=== PATIENT | female | born 1940 | race Caucasian/White ===

== ENCOUNTER 2016-11-06 14:59 | Outpatient (CLI) | payer MEDICARE, OTHER ==
[2015-09-03 17:19] VITALS: BP 148/88
== END 2016-11-06 15:00 ==
LOC: LAB 14:59
PROVIDERS: ATTEND Internal Medicine Cardiovascular Disease
DX: Z51.81 Encounter for therapeutic drug level monitoring (principal); Z79.01 Long term (current) use of anticoagulants; I48.2 Chronic atrial fibrillation
CPT/HCPCS: 36415; 85610

== ENCOUNTER 2017-01-09 11:56 | Outpatient (CLI) | payer MEDICARE, OTHER ==
[2015-09-03 17:19] VITALS: BP 148/88
== END 2017-01-09 11:57 ==
LOC: LAB 11:56
PROVIDERS: ATTEND Internal Medicine Cardiovascular Disease
DX: Z51.81 Encounter for therapeutic drug level monitoring (principal); Z79.01 Long term (current) use of anticoagulants; I48.2 Chronic atrial fibrillation
CPT/HCPCS: 36415; 85610

== ENCOUNTER 2017-03-09 10:31 | Outpatient (CLI) | payer MEDICARE, OTHER ==
[2015-09-03 17:19] VITALS: BP 148/88
== END 2017-03-09 10:32 ==
LOC: LAB 10:31
PROVIDERS: ATTEND Internal Medicine Cardiovascular Disease
DX: I48.2 Chronic atrial fibrillation (principal)
CPT/HCPCS: 36415; 85610

== ENCOUNTER 2017-04-09 11:34 | Outpatient (CLI) | payer MEDICARE, OTHER ==
[2015-09-03 17:19] VITALS: BP 148/88
== END 2017-04-09 11:35 ==
LOC: LAB 11:34
PROVIDERS: ATTEND Internal Medicine Cardiovascular Disease
DX: I48.2 Chronic atrial fibrillation (principal)
CPT/HCPCS: 36415; 85610

== ENCOUNTER 2017-06-08 11:04 | Outpatient (CLI) | payer MEDICARE, OTHER ==
[2015-09-03 17:19] VITALS: BP 148/88
== END 2017-06-08 13:10 ==
LOC: LAB 11:04
PROVIDERS: ATTEND Internal Medicine Cardiovascular Disease
DX: I48.2 Chronic atrial fibrillation (principal)
CPT/HCPCS: 36415; 85610

== ENCOUNTER 2017-07-06 11:02 | Outpatient (CLI) | payer MEDICARE, OTHER ==
[2015-09-03 17:19] VITALS: BP 148/88
== END 2017-07-06 11:03 ==
LOC: LAB 11:02
PROVIDERS: ATTEND Internal Medicine Cardiovascular Disease
DX: I48.2 Chronic atrial fibrillation (principal)
CPT/HCPCS: 36415; 85610

== ENCOUNTER 2017-07-20 11:52 | Outpatient (CLI) | payer MEDICARE, OTHER ==
[2015-09-03 17:19] VITALS: BP 148/88
== END 2017-07-20 11:53 ==
LOC: LAB 11:52
PROVIDERS: ATTEND Internal Medicine Cardiovascular Disease
DX: I48.2 Chronic atrial fibrillation (principal)
CPT/HCPCS: 36415; 85610

== ENCOUNTER 2017-08-24 11:43 | Outpatient (CLI) | payer MEDICARE, OTHER ==
[2015-09-03 17:19] VITALS: BP 148/88
== END 2017-08-24 11:44 ==
LOC: LAB 11:43
PROVIDERS: ATTEND Internal Medicine Cardiovascular Disease
DX: Z79.01 Long term (current) use of anticoagulants (principal)
CPT/HCPCS: 36415; 85610

== ENCOUNTER 2017-09-22 11:26 | Outpatient (CLI) | payer MEDICARE, OTHER ==
[2015-09-03 17:19] VITALS: BP 148/88
== END 2017-09-22 11:27 ==
LOC: LAB 11:26
PROVIDERS: ATTEND Internal Medicine Cardiovascular Disease
DX: Z79.01 Long term (current) use of anticoagulants (principal)
CPT/HCPCS: 36415; 85610

== ENCOUNTER 2017-11-30 13:24 | Outpatient (CLI) | payer MEDICARE, OTHER ==
[2015-09-03 17:19] VITALS: BP 148/88
== END 2017-11-30 13:25 ==
LOC: LAB 13:24
PROVIDERS: ATTEND Internal Medicine Cardiovascular Disease
DX: Z79.01 Long term (current) use of anticoagulants (principal)
CPT/HCPCS: 36415; 85610

== ENCOUNTER 2017-12-16 11:59 | Outpatient (CLI) | payer MEDICARE, OTHER ==
[2015-09-03 17:19] VITALS: BP 148/88
== END 2017-12-16 12:00 ==
LOC: LAB 11:59
PROVIDERS: ATTEND Internal Medicine Cardiovascular Disease
DX: Z79.01 Long term (current) use of anticoagulants (principal)
CPT/HCPCS: 36415; 85610

== ENCOUNTER 2017-12-30 11:36 | Outpatient (CLI) | payer MEDICARE, OTHER ==
[2015-09-03 17:19] VITALS: BP 148/88
== END 2017-12-30 12:00 ==
LOC: LAB 11:36
PROVIDERS: ATTEND Internal Medicine Cardiovascular Disease
DX: Z79.01 Long term (current) use of anticoagulants (principal)
CPT/HCPCS: 36415; 85610

== ENCOUNTER 2018-01-06 10:53 | Outpatient (CLI) | payer MEDICARE, OTHER ==
[2015-09-03 17:19] VITALS: BP 148/88
== END 2018-01-06 11:00 ==
LOC: LABRHC 10:53
PROVIDERS: ATTEND Physician Assistant
DX: R30.0 Dysuria (principal)
CPT/HCPCS: 87086; 87186

== ENCOUNTER 2018-01-13 11:56 | Outpatient (CLI) | payer MEDICARE, OTHER ==
[2015-09-03 17:19] VITALS: BP 148/88
== END 2018-01-13 11:58 ==
LOC: LAB 11:56
PROVIDERS: ATTEND Internal Medicine Cardiovascular Disease
DX: Z79.01 Long term (current) use of anticoagulants (principal)
CPT/HCPCS: 36415; 85610

== ENCOUNTER 2018-02-10 11:48 | Outpatient (CLI) | payer MEDICARE, OTHER ==
[2015-09-03 17:19] VITALS: BP 148/88
== END 2018-02-10 11:50 ==
LOC: LAB 11:48
PROVIDERS: ATTEND Internal Medicine Cardiovascular Disease
DX: Z79.01 Long term (current) use of anticoagulants (principal)
CPT/HCPCS: 36415; 85610

== ENCOUNTER 2018-03-02 13:34 | Outpatient (CLI) | payer MEDICARE, OTHER ==
[2015-09-03 17:19] VITALS: BP 148/88
== END 2018-03-02 13:36 ==
LOC: LAB 13:34
PROVIDERS: ATTEND Internal Medicine Cardiovascular Disease
DX: Z79.01 Long term (current) use of anticoagulants (principal)
CPT/HCPCS: 36415; 85610

== ENCOUNTER 2018-04-12 16:18 | Inpatient (IN) | payer MEDICARE, OTHER ==
[2018-04-12 18:33] VITALS: BMI 33.1
[2018-04-12] MEDS ORDERED: ASPIRIN EC 81 MG TABLET.DR ONE (19:56)
[2018-04-12] MEDS ORDERED: ACETAMINOPHEN 325 MG TABLET ONE (21:26)
[2018-04-12] MEDS: ACETAMINOPHEN ORAL SOLUTION 325 MG/10.15 ML CUP PO PRN (21:30)
[2018-04-12] MEDS: traMADol HCL 50 MG TABLET PO PRN (21:30)
[2018-04-12] MEDS: SIMVASTATIN 20 MG TABLET PO SCH ×2 (21:30→21:43)
[2018-04-12] MEDS: ZOLPIDEM TARTRATE 5 MG TABLET PO PRN (21:30)
[2018-04-12] MEDS: LORazepam 0.5 MG TABLET PO PRN (21:30)
[2018-04-12] MEDS: LEVOTHYROXINE SODIUM 25 MCG TABLET PO SCH (21:43)
[2018-04-12] MEDS: OMEPRAZOLE 20 MG CAPSULE.DR PO SCH (21:43)
[2018-04-13] MEDS: LEVOTHYROXINE SODIUM 25 MCG TABLET PO SCH (06:20)
[2018-04-13] MEDS: OMEPRAZOLE 20 MG CAPSULE.DR PO SCH (06:20)
[2018-04-13] MEDS: ASPIRIN 81 MG CHEW TAB PO SCH (08:58)
[2018-04-13] MEDS: DILTIAZEM HCL 180 MG CAP.ER.24H PO SCH (08:58)
[2018-04-13] MEDS: CALCIUM/VIT D 500MG/200IU TABLET PO SCH (08:58)
[2018-04-13] MEDS: AMIODARONE HCL 200 MG TABLET PO SCH (08:58)
[2018-04-13] MEDS: FUROSEMIDE 40 MG TABLET PO SCH (08:58)
[2018-04-13] MEDS: CHOLECALCIFEROL (VIT D3) 1,000 UNIT TABLET PO SCH (08:58)
[2018-04-13] MEDS: METOPROLOL SUCCINATE 50 MG TAB.ER.24H PO SCH (08:58)
[2018-04-13] MEDS: HYDROXYUREA 500 MG CAPSULE PO SCH (10:00)
[2018-04-13 13:15] LABS: MEAN CORPUSCULAR HEMOGLOBIN 21.3 pg (28.0-34.0)
[2018-04-13 13:16] LABS: MEAN CORPUSCULAR VOLUME 80.7 fl (80.0-100.0)
[2018-04-13 13:48] LABS: ANISOCYTOSIS 1+ (NEGATIVE); EOSINOPHILS % 1 % (0-7); HYPOCHROMASIA 1+ (NEGATIVE); MONOCYTES % 3 % (0-11); SEGMENTED NEUTROPHILS % 88 % (39-79)
[2018-04-13] MEDS: WARFARIN SODIUM 1 MG TABLET PO SCH (17:36)
[2018-04-13] MEDS ORDERED: ACETAMINOPHEN 325 MG TABLET ONE ×2 (19:53→20:03)
[2018-04-13] MEDS: traMADol HCL 50 MG TABLET PO PRN (20:00)
[2018-04-13] MEDS: SIMVASTATIN 20 MG TABLET PO SCH (20:00)
[2018-04-13] MEDS: ACETAMINOPHEN ORAL SOLUTION 325 MG/10.15 ML CUP PO PRN (20:00)
[2018-04-13] MEDS: ZOLPIDEM TARTRATE 5 MG TABLET PO PRN (21:39)
[2018-04-13] MEDS: LORazepam 0.5 MG TABLET PO PRN (21:39)
[2018-04-14] MEDS ORDERED: ACETAMINOPHEN 325 MG TABLET ONE (02:00)
[2018-04-14] MEDS: ACETAMINOPHEN ORAL SOLUTION 325 MG/10.15 ML CUP PO PRN (02:05)
[2018-04-14] MEDS: traMADol HCL 50 MG TABLET PO PRN ×3 (02:05→22:33)
[2018-04-14] MEDS: OMEPRAZOLE 20 MG CAPSULE.DR PO SCH (06:20)
[2018-04-14] MEDS: LEVOTHYROXINE SODIUM 25 MCG TABLET PO SCH (06:20)
[2018-04-14] MEDS: CHOLECALCIFEROL (VIT D3) 1,000 UNIT TABLET PO SCH (08:35)
[2018-04-14] MEDS: METOPROLOL SUCCINATE 50 MG TAB.ER.24H PO SCH (08:35)
[2018-04-14] MEDS: DILTIAZEM HCL 180 MG CAP.ER.24H PO SCH (08:35)
[2018-04-14] MEDS: ASPIRIN 81 MG CHEW TAB PO SCH (08:35)
[2018-04-14] MEDS: AMIODARONE HCL 200 MG TABLET PO SCH (08:35)
[2018-04-14] MEDS: FUROSEMIDE 40 MG TABLET PO SCH (08:35)
[2018-04-14] MEDS: CALCIUM/VIT D 500MG/200IU TABLET PO SCH (08:35)
[2018-04-14] MEDS: HYDROXYUREA 500 MG CAPSULE PO SCH (08:35)
[2018-04-14] MEDS: WARFARIN SODIUM 1 MG TABLET PO SCH (18:04)
[2018-04-14] MEDS: SIMVASTATIN 20 MG TABLET PO SCH (20:23)
[2018-04-14] MEDS: ZOLPIDEM TARTRATE 5 MG TABLET PO PRN (21:33)
[2018-04-15] MEDS: LORazepam 0.5 MG TABLET PO PRN (01:00)
[2018-04-15] MEDS: LEVOTHYROXINE SODIUM 25 MCG TABLET PO SCH (06:34)
[2018-04-15] MEDS: OMEPRAZOLE 20 MG CAPSULE.DR PO SCH (06:34)
[2018-04-15 06:59] LABS: MEAN CORPUSCULAR VOLUME 78.4 fl (80.0-100.0)
--- NOTE | 2018-04-15 08:03 | Inpatient Progress Note ---
Subjective - Required Recertification Statement I anticipate X number of days because-include discharge plan: 14 - Review of Systems Subjective: Patient reports she is not sleeping at night. Feels tired. Pain is doing ok. General: Fatigue. Denies: Night Sweats Pulmonary: Denies: Cough Cardiovascular: Denies: Chest Pain Genitourinary: Denies: Dysuria Objective - Exam Vitals and I&O: Vital Signs Temp 98 F 04/14/18 21:00 Pulse 106 H 04/14/18 21:00 Resp 16 04/14/18 21:00 BP 141/65 04/14/18 21:00 Pulse Ox 95 04/14/18 21:00 Intake & Output 04/14/18 04/14/18 04/15/18 11:59 23:59 11:59 Intake Total 200 480 Balance 200 480 Intake: Oral 200 480 Other: Voiding Method Toilet Toilet # Voids 2 1 3 # Bowel Movements 0 0 0 General: Alert, Oriented to Person, Oriented to Place, Oriented to Time, Cooperative, No acute distress Lungs: Clear to auscultation, Normal air movement, Speaks full Sentences Cardiovascular: Irregularly Irregular - Results Results: Laboratory Results WBC 18.50 K/ul (4.00-12.00) H 04/15/18 06:50 RBC 4.16 M/ul (3.90-5.20) 04/15/18 06:50 Hgb 8.3 g/dL (12.0-16.0) L 04/15/18 06:50 Hct 32.6 % (34.5-46.5) L 04/15/18 06:50 MCV 78.4 fl (80.0-100.0) L 04/15/18 06:50 MCH 20.0 pg (28.0-34.0) L 04/15/18 06:50 MCHC 25.5 g/dL (30.0-36.0) L 04/15/18 06:50 RDW 18.3 % (11.3-14.3) H 04/15/18 06:50 Plt Count 740 K/mm3 (130-400) H 04/15/18 06:50 Seg Neutrophils % 88 % (39-79) H 04/13/18 11:15 Band Neutrophils % 1 % (0-12) 04/13/18 11:15 Lymphocytes % 7 % (16-50) L 04/13/18 11:15 Monocytes % 3 % (0-11) 04/13/18 11:15 Eosinophils % 1 % (0-7) 04/13/18 11:15 Plt Morphology Comment Normal (NORMAL) 04/13/18 11:15 Hypochromasia 1+ (NEGATIVE) H 04/13/18 11:15 Poikilocytosis 1+ (NEGATIVE) H 04/13/18 11:15 Anisocytosis 1+ (NEGATIVE) H 04/13/18 11:15 RBC Morph Comment Abnormal (NORMAL) H 04/13/18 11:15 PT 15.7 Seconds (9.4-11.6) H 04/15/18 06:50 INR 1.49 (0.9-1.2) H 04/15/18 06:50 Sodium 130 mmol/L (136-145) L 04/13/18 11:15 Potassium 3.7 mmol/L (3.5-5.1) 04/13/18 11:15 Chloride 96 mmol/L (98-107) L 04/13/18 11:15 Carbon Dioxide 29 mmol/L (22-30) 04/13/18 11:15 BUN 54 mg/dL (7-17) H 04/13/18 11:15 Creatinine 1.50 mg/dL (0.52-1.04) H 04/13/18 11:15 Estimated Creat Clear 51 04/13/18 11:15 Est GFR ( Amer) 43 (60-) L 04/13/18 11:15 Est GFR (Non-Af Amer) 36 (60-) L 04/13/18 11:15 Glucose 128 mg/dL (74-106) H 04/13/18 11:15 Calcium 8.5 mg/dL (8.4-10.2) 04/13/18 11:15 Total Bilirubin 0.6 mg/dL (0.2-1.3) 04/13/18 11:15 AST 39 U/L (15-46) 04/13/18 11:15 ALT 38 U/L (13-69) 04/13/18 11:15 Alkaline Phosphatase 70 U/L (38-126) 04/13/18 11:15 Total Protein 5.9 g/dL (6.3-8.2) L 04/13/18 11:15 Albumin 3.2 g/dL (3.5-5.0) L 04/13/18 11:15 Assessment/Plan - Assessment/Plan (1) Afib Status: Acute Current Visit: Yes Plan: INR low. Increase coumadin. Recheck 2 days. (2) Polycythemia Status: Acute Current Visit: Yes Plan: Will discuss with Dr. Mcnair. At [facility], her WBC were 19,500. Hgb was 7.4. She reports she had been on hydroxyurea qod. [facility] sent her on qd. (3) Insomnia Status: Acute Current Visit: Yes Qualifiers: Insomnia type: primary Qualified Code(s): F51.01 - Primary insomnia Plan: Add dose of lorazepam at night per patient request. (4) Insomnia Status: Acute Current Visit: Yes
[2018-04-15] MEDS: CHOLECALCIFEROL (VIT D3) 1,000 UNIT TABLET PO SCH (09:50)
[2018-04-15] MEDS: DILTIAZEM HCL 180 MG CAP.ER.24H PO SCH (09:50)
[2018-04-15] MEDS: AMIODARONE HCL 200 MG TABLET PO SCH (09:50)
[2018-04-15] MEDS: HYDROXYUREA 500 MG CAPSULE PO SCH (09:50)
[2018-04-15] MEDS: FUROSEMIDE 40 MG TABLET PO SCH (09:50)
[2018-04-15] MEDS: METOPROLOL SUCCINATE 50 MG TAB.ER.24H PO SCH (09:50)
[2018-04-15] MEDS: CALCIUM/VIT D 500MG/200IU TABLET PO SCH (09:50)
[2018-04-15] MEDS: ASPIRIN 81 MG CHEW TAB PO SCH (09:50)
[2018-04-15] MEDS ORDERED: ACETAMINOPHEN 325 MG TABLET ONE (11:59)
[2018-04-15] MEDS: WARFARIN SODIUM 1 MG TABLET PO SCH (17:45)
[2018-04-15] MEDS: traMADol HCL 50 MG TABLET PO PRN (21:31)
[2018-04-15] MEDS: ZOLPIDEM TARTRATE 5 MG TABLET PO PRN (21:31)
[2018-04-15] MEDS: LORazepam 1 MG TABLET PO SCH (21:31)
[2018-04-15] MEDS: SIMVASTATIN 20 MG TABLET PO SCH (21:31)
[2018-04-16] MEDS ORDERED: ACETAMINOPHEN 325 MG TABLET ONE ×3 (01:27→15:46)
[2018-04-16] MEDS: ACETAMINOPHEN ORAL SOLUTION 325 MG/10.15 ML CUP PO PRN (01:30)
[2018-04-16] MEDS: LEVOTHYROXINE SODIUM 25 MCG TABLET PO SCH (05:35)
[2018-04-16] MEDS: OMEPRAZOLE 20 MG CAPSULE.DR PO SCH (05:36)
[2018-04-16] MEDS: METOPROLOL SUCCINATE 50 MG TAB.ER.24H PO SCH (09:05)
[2018-04-16] MEDS: CALCIUM/VIT D 500MG/200IU TABLET PO SCH (09:05)
[2018-04-16] MEDS: DILTIAZEM HCL 180 MG CAP.ER.24H PO SCH (09:05)
[2018-04-16] MEDS: ASPIRIN 81 MG CHEW TAB PO SCH (09:05)
[2018-04-16] MEDS: HYDROXYUREA 500 MG CAPSULE PO SCH (09:05)
[2018-04-16] MEDS: AMIODARONE HCL 200 MG TABLET PO SCH (09:05)
[2018-04-16] MEDS: CHOLECALCIFEROL (VIT D3) 1,000 UNIT TABLET PO SCH (09:05)
[2018-04-16] MEDS: FUROSEMIDE 40 MG TABLET PO SCH (09:37)
[2018-04-16] MEDS: WARFARIN SODIUM 1 MG TABLET PO SCH (17:53)
[2018-04-16] MEDS: traMADol HCL 50 MG TABLET PO PRN (20:55)
[2018-04-16] MEDS: LORazepam 1 MG TABLET PO SCH (20:55)
[2018-04-16] MEDS: SIMVASTATIN 20 MG TABLET PO SCH (20:55)
[2018-04-16] MEDS: ZOLPIDEM TARTRATE 5 MG TABLET PO PRN (20:55)
[2018-04-17] MEDS: ACETAMINOPHEN ORAL SOLUTION 325 MG/10.15 ML CUP PO PRN ×2 (01:49→20:33)
[2018-04-17] MEDS: LORazepam 0.5 MG TABLET PO PRN (01:50)
[2018-04-17] MEDS: OMEPRAZOLE 20 MG CAPSULE.DR PO SCH (06:14)
[2018-04-17] MEDS: LEVOTHYROXINE SODIUM 25 MCG TABLET PO SCH (06:14)
--- NOTE | 2018-04-17 08:32 | History and Physical Report ---
CHIEF COMPLAINT: Recent mitral valve repair and MAZE procedure. HISTORY OF PRESENT ILLNESS: This 77-year-old female patient of Dr. Jarvis's presented with a known history of nonrheumatic mitral valve disease over the last several years. She has been followed for this by Dr. Dupree and it was felt that it had gotten to the point where her symptoms were such that her dyspnea on exertion was markedly limiting her ability to participate in the things she cared about. As a result, she was taken the operating room for a mitral valve repair and also because of her atrial fibrillation, a MAZE procedure. She intraoperatively briefly returned to a sinus rhythm but returned to atrial fibrillation soon after the procedure was finished. She is now on amiodarone. Other than that, her hospital course was fairly remarkable. She comes to us for ongoing therapy. PAST MEDICAL HISTORY: 1. History for nonrheumatic mitral valve insufficiency. 2. Hypercholesterolemia. 3. Hypertension. 4. Hypothyroidism. 5. Chronic atrial fibrillation. 6. Dyspnea on exertion. 7. History of gastroesophageal reflux disease. 8. History of a TIA. 9. Polycythemia for which she is on hydroxyurea. PAST SURGICAL HISTORY: 1. Hysterectomy. 2. Ankle surgery because of a trimalleolar fracture of the left ankle. CURRENT MEDICATIONS: 1. Tylenol ER 650 mg every 8 hours. 2. Allopurinol 200 mg p.o. at bedtime. 3. Amiodarone 200 mg p.o. daily. 4. Aspirin 81 mg daily. 5. Calcium 500 mg orally by mouth daily. 6. Cholecalciferol 2 tablets p.o. daily. 7. Diltiazem XR 180 mg daily. 8. Lasix 40 mg daily. 9. Hydroxyurea 500 mg p.o. daily. 10. Levothyroxine 25 mcg daily. 11. Lorazepam 0.5 mg p.o. daily. 12. Lovastatin 10 mg p.o. daily. 13. Metoprolol XL 50 mg every 24 hours p.r.n. 14. Warfarin 3 mg daily. 15. Tramadol 50 mg p.o. every 6 hours. 16. Omeprazole 20 mg daily. 17. Zolpidem 10 mg at bedtime. ALLERGIES: She is allergic to: 1. Meloxicam. 2. Pradaxa, which caused some bleeding. SOCIAL HISTORY: She quit smoking over a year ago. She is a . She does not exercise regularly. She is retired. She lives alone in [place], [place], but has very close follow up from her son and other relatives, as well as grandchildren here in town. FAMILY HISTORY: Noncontributory. REVIEW OF SYSTEMS: Notable for a little bit of chest pain and dyspnea on exertion. She says it has not markedly improved since surgery, although she states it may be slightly so. She has no fever, chills, nausea or vomiting. No abdominal pain. No constipation or diarrhea. Extremities are warm and well perfused. She does not have any ankle pain. PHYSICAL EXAMINATION: Vital Signs: T: 97.2, P: 79, R: 18, BP: 109/64, pulse oximetry is 96% on room air. General: This is a very pleasant, alert, and oriented 77-year-old female who looks younger than her stated age. HEENT: Mucous membranes to be moist. Neck: No JVD is noted. No carotid bruits. No thyroid masses. Lungs: Clear. Heart: Irregularly irregular rhythm. Chest: Her sternotomy scar is actually healing extremely well. No keloid formation. Chest tube site is also unremarkable. Abdomen: Soft. No guarding. No rebound. Scar from previous hysterectomy is noted. Pelvic Exam: Deferred. Extremities: Warm and well perfused. She has scars up and down the outside of her left ankle from her open reduction and internal fixation of her left ankle. DIAGNOSTIC STUDIES: Laboratory will be drawn in the morning. ASSESSMENT: 1. Status post recent coronary artery bypass grafting. 2. Chronic atrial fibrillation. 3. Status post MAZE procedure. 4. Chronic hypothyroidism. 5. Hypertension. 6. Atherosclerotic coronary vascular disease. 7. Hyperlipidemia. PLAN: 1. Medications as ordered. 2. Occupational therapy and physical therapy are ordered. They will be working with her tomorrow. 3. We will check an INR and we will follow that. 4. Continue her warfarin 3 mg a day for DVT prophylaxis and also for her atrial fibrillation. 5. Antiembolic stockings are ordered. 6. We will check a CMP and a CBC in the morning. CALIN
[2018-04-17] MEDS: FUROSEMIDE 40 MG TABLET PO SCH (09:15)
[2018-04-17] MEDS: CALCIUM/VIT D 500MG/200IU TABLET PO SCH (09:15)
[2018-04-17] MEDS: CHOLECALCIFEROL (VIT D3) 1,000 UNIT TABLET PO SCH (09:15)
[2018-04-17] MEDS: ASPIRIN 81 MG CHEW TAB PO SCH (09:15)
[2018-04-17] MEDS: AMIODARONE HCL 200 MG TABLET PO SCH (09:15)
[2018-04-17] MEDS: DILTIAZEM HCL 180 MG CAP.ER.24H PO SCH (09:15)
[2018-04-17] MEDS: METOPROLOL SUCCINATE 50 MG TAB.ER.24H PO SCH (09:15)
[2018-04-17] MEDS: HYDROXYUREA 500 MG CAPSULE PO SCH (09:15)
[2018-04-17 09:34] LABS: BASOPHILS % 0.7 (0.0-1.5)
[2018-04-17 09:36] LABS: MEAN CORPUSCULAR HEMOGLOBIN 20.3 pg (28.0-34.0)
[2018-04-17] MEDS: WARFARIN SODIUM 1 MG TABLET PO SCH (17:59)
[2018-04-17] MEDS ORDERED: ACETAMINOPHEN 325 MG TABLET ONE (20:00)
[2018-04-17] MEDS: SIMVASTATIN 20 MG TABLET PO SCH (20:33)
[2018-04-17] MEDS: ZOLPIDEM TARTRATE 5 MG TABLET PO PRN (21:29)
[2018-04-17] MEDS: traMADol HCL 50 MG TABLET PO PRN (21:29)
[2018-04-17] MEDS: LORazepam 1 MG TABLET PO SCH (21:29)
[2018-04-18] MEDS: LORazepam 0.5 MG TABLET PO PRN ×2 (01:28→23:10)
[2018-04-18] MEDS: traMADol HCL 50 MG TABLET PO PRN ×2 (04:31→23:10)
[2018-04-18] MEDS: OMEPRAZOLE 20 MG CAPSULE.DR PO SCH (06:15)
[2018-04-18] MEDS: LEVOTHYROXINE SODIUM 25 MCG TABLET PO SCH (06:15)
[2018-04-18] MEDS: HYDROXYUREA 500 MG CAPSULE PO SCH (09:04)
[2018-04-18] MEDS: METOPROLOL SUCCINATE 50 MG TAB.ER.24H PO SCH (09:04)
[2018-04-18] MEDS: AMIODARONE HCL 200 MG TABLET PO SCH (09:04)
[2018-04-18] MEDS: ASPIRIN 81 MG CHEW TAB PO SCH (09:04)
[2018-04-18] MEDS: CALCIUM/VIT D 500MG/200IU TABLET PO SCH (09:04)
[2018-04-18] MEDS: CHOLECALCIFEROL (VIT D3) 1,000 UNIT TABLET PO SCH (09:04)
[2018-04-18] MEDS: FUROSEMIDE 40 MG TABLET PO SCH (09:04)
[2018-04-18] MEDS: DILTIAZEM HCL 180 MG CAP.ER.24H PO SCH (09:04)
[2018-04-18] MEDS ORDERED: ACETAMINOPHEN 325 MG TABLET ONE (17:34)
[2018-04-18] MEDS: ACETAMINOPHEN ORAL SOLUTION 325 MG/10.15 ML CUP PO PRN (17:41)
[2018-04-18] MEDS: WARFARIN SODIUM 1 MG TABLET PO SCH (17:43)
[2018-04-18] MEDS: LORazepam 1 MG TABLET PO SCH (21:30)
[2018-04-18] MEDS: SIMVASTATIN 20 MG TABLET PO SCH (21:30)
[2018-04-18] MEDS: ZOLPIDEM TARTRATE 5 MG TABLET PO PRN (21:30)
[2018-04-19] MEDS ORDERED: ACETAMINOPHEN 325 MG TABLET ONE (03:16)
[2018-04-19] MEDS: OMEPRAZOLE 20 MG CAPSULE.DR PO SCH (06:30)
[2018-04-19] MEDS: LEVOTHYROXINE SODIUM 25 MCG TABLET PO SCH (06:30)
[2018-04-19 07:12] LABS: BASOPHILS % 0.4 (0.0-1.5); EOSINOPHILS % 2.8 % (0.0-6.8); MEAN CORPUSCULAR HEMOGLOBIN 20.1 pg (28.0-34.0); MEAN CORPUSCULAR VOLUME 78.7 fl (80.0-100.0); NEUTROPHILS # 14.1 # k/uL (1.4-7.7)
[2018-04-19 07:26] LABS: eGFR (African) > 60; eGFR (Non-African) > 60
[2018-04-19] MEDS: METOPROLOL SUCCINATE 50 MG TAB.ER.24H PO SCH (09:38)
[2018-04-19] MEDS: CHOLECALCIFEROL (VIT D3) 1,000 UNIT TABLET PO SCH (09:38)
[2018-04-19] MEDS: AMIODARONE HCL 200 MG TABLET PO SCH (09:38)
[2018-04-19] MEDS: CALCIUM/VIT D 500MG/200IU TABLET PO SCH (09:38)
[2018-04-19] MEDS: DILTIAZEM HCL 180 MG CAP.ER.24H PO SCH (09:38)
[2018-04-19] MEDS: ASPIRIN 81 MG CHEW TAB PO SCH (09:39)
[2018-04-19] MEDS: HYDROXYUREA 500 MG CAPSULE PO SCH (09:39)
[2018-04-19] MEDS: FUROSEMIDE 40 MG TABLET PO SCH (09:39)
[2018-04-19] MEDS: ACETAMINOPHEN ORAL SOLUTION 325 MG/10.15 ML CUP PO PRN (14:34)
[2018-04-19] MEDS: WARFARIN SODIUM 1 MG TABLET PO SCH (17:54)
[2018-04-19] MEDS: SIMVASTATIN 20 MG TABLET PO SCH (21:06)
[2018-04-19] MEDS: LORazepam 1 MG TABLET PO SCH (21:06)
[2018-04-19] MEDS: ZOLPIDEM TARTRATE 5 MG TABLET PO PRN (21:12)
[2018-04-20] MEDS: LORazepam 0.5 MG TABLET PO PRN (02:12)
[2018-04-20] MEDS: ACETAMINOPHEN ORAL SOLUTION 325 MG/10.15 ML CUP PO PRN (03:30)
[2018-04-20] MEDS: traMADol HCL 50 MG TABLET PO PRN ×2 (05:45→20:53)
[2018-04-20] MEDS: LEVOTHYROXINE SODIUM 25 MCG TABLET PO SCH (05:46)
[2018-04-20] MEDS: OMEPRAZOLE 20 MG CAPSULE.DR PO SCH (05:46)
[2018-04-20] MEDS: METOPROLOL SUCCINATE 50 MG TAB.ER.24H PO SCH (08:30)
[2018-04-20] MEDS: CHOLECALCIFEROL (VIT D3) 1,000 UNIT TABLET PO SCH (08:30)
[2018-04-20] MEDS: HYDROXYUREA 500 MG CAPSULE PO SCH (08:30)
[2018-04-20] MEDS: DILTIAZEM HCL 180 MG CAP.ER.24H PO SCH (08:30)
[2018-04-20] MEDS: AMIODARONE HCL 200 MG TABLET PO SCH (08:31)
[2018-04-20] MEDS: CALCIUM/VIT D 500MG/200IU TABLET PO SCH (08:31)
[2018-04-20] MEDS: FUROSEMIDE 40 MG TABLET PO SCH (08:31)
[2018-04-20] MEDS: ASPIRIN 81 MG CHEW TAB PO SCH (08:31)
[2018-04-20] MEDS ORDERED: ACETAMINOPHEN 325 MG TABLET ONE (15:27)
[2018-04-20] MEDS: WARFARIN SODIUM 1 MG TABLET PO SCH (17:56)
[2018-04-20] MEDS: ZOLPIDEM TARTRATE 5 MG TABLET PO PRN (20:53)
[2018-04-20] MEDS: SIMVASTATIN 20 MG TABLET PO SCH (20:54)
[2018-04-20] MEDS: LORazepam 1 MG TABLET PO SCH (20:54)
[2018-04-21] MEDS: LORazepam 0.5 MG TABLET PO PRN (01:01)
[2018-04-21] MEDS: traMADol HCL 50 MG TABLET PO PRN (03:14)
[2018-04-21] MEDS: OMEPRAZOLE 20 MG CAPSULE.DR PO SCH (06:08)
[2018-04-21] MEDS: LEVOTHYROXINE SODIUM 25 MCG TABLET PO SCH (06:09)
--- NOTE | 2018-04-21 07:54 | Inpatient Progress Note ---
Subjective - Required Recertification Statement I anticipate X number of days because-include discharge plan: 7 - Review of Systems Subjective: Patient still not sleeping despite ambien and lorazepam. She reports mattress hurts her back at night. Stools are infrequent and hard. Objective - Exam Vitals and I&O: Vital Signs Temp 98.4 F 04/20/18 21:00 Pulse 81 04/20/18 21:00 Resp 18 04/20/18 21:00 BP 128/75 04/20/18 21:00 Pulse Ox 99 04/20/18 21:00 Intake & Output 04/20/18 04/20/18 04/21/18 11:59 23:59 11:59 Intake Total 780 1000 200 Output Total 1 Balance 780 999 200 Intake: Oral 780 1000 200 Output: Stool 1 Other: Voiding Method Toilet Toilet # Voids 1 2 # Bowel Movements 1 General: Alert, Oriented to Person, Oriented to Place, Oriented to Time, Cooperative, No acute distress Lungs: Clear to auscultation, Normal air movement, Speaks full Sentences Cardiovascular: Irregularly Irregular Extremities: No: No edema (1+ edema) Psych/Mental Status: Mental status NL, Mood NL - Results Results: Laboratory Results WBC 15.50 K/ul (4.00-12.00) H 04/19/18 06:45 RBC 4.00 M/ul (3.90-5.20) 04/19/18 06:45 Hgb 8.1 g/dL (12.0-16.0) L 04/19/18 06:45 Hct 31.5 % (34.5-46.5) L 04/19/18 06:45 MCV 78.7 fl (80.0-100.0) L 04/19/18 06:45 MCH 20.1 pg (28.0-34.0) L 04/19/18 06:45 MCHC 25.6 g/dL (30.0-36.0) L 04/19/18 06:45 RDW 18.5 % (11.3-14.3) H 04/19/18 06:45 Plt Count 930 K/mm3 (130-400) H 04/19/18 06:45 Neut % (Auto) 90.5 % (39.0-79.0) H 04/19/18 06:45 Lymph % (Auto) 4.6 % (16.0-50.0) L 04/19/18 06:45 [place] % (Auto) 1.0 % (0.0-11.0) 04/19/18 06:45 Eos % (Auto) 2.8 % (0.0-6.8) 04/19/18 06:45 Baso % (Auto) 0.4 (0.0-1.5) 04/19/18 06:45 Neut # (Auto) 14.1 # k/uL (1.4-7.7) H 04/19/18 06:45 Lymph # (Auto) 0.7 # k/uL (0.6-4.0) 04/19/18 06:45 [place] # (Auto) 0.2 # k/uL (0.0-0.9) 04/19/18 06:45 Eos # (Auto) 0.4 # k/uL (0.0-0.6) 04/19/18 06:45 Baso # (Auto) 0.1 # k/uL (0.0-0.5) 04/19/18 06:45 Seg Neutrophils % 88 % (39-79) H 04/13/18 11:15 Band Neutrophils % 1 % (0-12) 04/13/18 11:15 Lymphocytes % 7 % (16-50) L 04/13/18 11:15 Reactive Lymphs % 0.7 % (0.0-5.0) 04/19/18 06:45 Monocytes % 3 % (0-11) 04/13/18 11:15 Eosinophils % 1 % (0-7) 04/13/18 11:15 Reactive Lymphs # 0.1 # k/uL (0.0-0.8) 04/19/18 06:45 Plt Morphology Comment Normal (NORMAL) 04/13/18 11:15 Hypochromasia 1+ (NEGATIVE) H 04/13/18 11:15 Poikilocytosis 1+ (NEGATIVE) H 04/13/18 11:15 Anisocytosis 1+ (NEGATIVE) H 04/13/18 11:15 RBC Morph Comment Abnormal (NORMAL) 04/13/18 11:15 PT 51.0 Seconds (9.4-11.6) H 04/21/18 06:45 INR 4.78 (0.9-1.2) H 04/21/18 06:45 Sodium 137 mmol/L (136-145) 04/19/18 06:45 Potassium 4.2 mmol/L (3.5-5.1) 04/19/18 06:45 Chloride 100 mmol/L (98-107) 04/19/18 06:45 Carbon Dioxide 31 mmol/L (22-30) H 04/19/18 06:45 BUN 25 mg/dL (7-17) H 04/19/18 06:45 Creatinine 1.00 mg/dL (0.52-1.04) 04/19/18 06:45 Estimated Creat Clear 76 04/19/18 06:45 Est GFR ( Amer) > 60 (60-) 04/19/18 06:45 Est GFR (Non-Af Amer) > 60 (60-) 04/19/18 06:45 Glucose 102 mg/dL (74-106) 04/19/18 06:45 Calcium 8.7 mg/dL (8.4-10.2) 04/19/18 06:45 Total Bilirubin 0.6 mg/dL (0.2-1.3) 04/13/18 11:15 AST 39 U/L (15-46) 04/13/18 11:15 ALT 38 U/L (13-69) 04/13/18 11:15 Alkaline Phosphatase 70 U/L (38-126) 04/13/18 11:15 Total Protein 5.9 g/dL (6.3-8.2) L 04/13/18 11:15 Albumin 3.2 g/dL (3.5-5.0) L 04/13/18 11:15 Assessment/Plan - Assessment/Plan (1) Afib Status: Acute Current Visit: Yes Plan: INR overshot. Hold coumadin. REcheck INR in the am. Home dose was 2.5 mg. Monitored by [facility]. (2) Polycythemia Status: Acute Current Visit: Yes Plan: Labs stable. Dr. Mcnair aware. Will need labs - CBC in 2 weeks with results sent to him. (3) Insomnia Status: Acute Current Visit: Yes Qualifiers: Insomnia type: primary Qualified Code(s): F51.01 - Primary insomnia Plan: Will d/c ambien and lorazepam at night. Trial of temazepam 15 mg. May need to increase to 30 mg. Add K pad for back discomfort at night. (4) Insomnia Status: Acute Current Visit: Yes (5) Constipation Status: Acute Current Visit: Yes Qualifiers: Constipation type: slow transit constipation Qualified Code(s): K59.01 - Slow transit constipation Plan: Dulcolax today. Add colace.
[2018-04-21] MEDS ORDERED: BISACODYL 5 MG TABLET.DR PO ONE (08:17)
[2018-04-21] MEDS: ASPIRIN 81 MG CHEW TAB PO SCH (09:09)
[2018-04-21] MEDS: HYDROXYUREA 500 MG CAPSULE PO SCH (09:09)
[2018-04-21] MEDS: DILTIAZEM HCL 180 MG CAP.ER.24H PO SCH (09:09)
[2018-04-21] MEDS: FUROSEMIDE 40 MG TABLET PO SCH (09:10)
[2018-04-21] MEDS: AMIODARONE HCL 200 MG TABLET PO SCH (09:10)
[2018-04-21] MEDS: CALCIUM/VIT D 500MG/200IU TABLET PO SCH (09:10)
[2018-04-21] MEDS: CHOLECALCIFEROL (VIT D3) 1,000 UNIT TABLET PO SCH (09:10)
[2018-04-21] MEDS: METOPROLOL SUCCINATE 50 MG TAB.ER.24H PO SCH (09:10)
[2018-04-21] MEDS: DOCUSATE SODIUM 100 MG CAPSULE PO SCH (09:12)
[2018-04-21] MEDS: ACETAMINOPHEN ORAL SOLUTION 325 MG/10.15 ML CUP PO PRN (19:38)
[2018-04-21] MEDS: SIMVASTATIN 20 MG TABLET PO SCH (21:00)
[2018-04-21] MEDS ORDERED: TEMAZEPAM 15 MG CAP PO SCH (21:00)
[2018-04-22] MEDS ORDERED: TEMAZEPAM 15 MG CAP PO ONE (01:30)
[2018-04-22] MEDS: traMADol HCL 50 MG TABLET PO PRN ×2 (02:51→08:03)
[2018-04-22] MEDS: LEVOTHYROXINE SODIUM 25 MCG TABLET PO SCH (06:08)
[2018-04-22] MEDS: OMEPRAZOLE 20 MG CAPSULE.DR PO SCH (06:08)
[2018-04-22] MEDS: METOPROLOL SUCCINATE 50 MG TAB.ER.24H PO SCH (08:03)
[2018-04-22] MEDS: DOCUSATE SODIUM 100 MG CAPSULE PO SCH (08:03)
[2018-04-22] MEDS: HYDROXYUREA 500 MG CAPSULE PO SCH (08:03)
[2018-04-22] MEDS: DILTIAZEM HCL 180 MG CAP.ER.24H PO SCH (08:03)
[2018-04-22] MEDS: AMIODARONE HCL 200 MG TABLET PO SCH (08:03)
[2018-04-22] MEDS: CHOLECALCIFEROL (VIT D3) 1,000 UNIT TABLET PO SCH (08:03)
[2018-04-22] MEDS: ASPIRIN 81 MG CHEW TAB PO SCH (08:03)
[2018-04-22] MEDS: FUROSEMIDE 40 MG TABLET PO SCH (08:03)
[2018-04-22] MEDS: CALCIUM/VIT D 500MG/200IU TABLET PO SCH (08:04)
[2018-04-22] MEDS ORDERED: ZOLPIDEM TARTRATE 5 MG TABLET PO PRN (12:24)
--- NOTE | 2018-04-22 13:10 | Discharge Summary ---
Discharge Summary - Discharge Sumary History of Present Illness: Patient underwent mitral valve repair and cryomaze at [facility]. Due to weakness, she was admitted to SNF for further conditioning. Condition at Discharge: Stable Home Medications: Ambulatory Orders Medication Instructions Recorded Acetaminophen [Tylenol] 650 mg PO Q6 PRN 04/22/18 Acetaminophen [Tylenol] 650 mg PO Q6 PRN cup 04/22/18 Amiodarone HCl [Pacerone] 200 mg PO QD #30 tablet 04/22/18 Aspirin [Children's Aspirin] 81 mg PO DAILY 04/22/18 Bisacodyl [Dulcolax] 10 mg PO QD 04/22/18 Calcium Carbonate/Vitamin D3 1 tab PO D 04/22/18 [Calcium 500 + Vit D 200 Tablet] Cholecalciferol [Vitamin D-3] 2,000 unit PO DAILY 04/22/18 Docusate Sodium [Colace] 200 mg PO D 04/22/18 Furosemide [Lasix] 40 mg PO DAILY 04/22/18 Hydroxyurea [Hydrea] 500 mg PO DAILY 04/22/18 LORazepam [Ativan] 1 tab PO Q6 PRN 04/22/18 Simvastatin 20 mg PO HS 04/22/18 Consultations this Visit: None Procedures this Visit: None Allergies/Adverse Reactions: Allergies Allergy/AdvReac Type Severity Reaction Status Date / Time No Known Drug Allergies Allergy Verified 09/03/15 15:49 Patient Problems: Current Active Problems Problem Status Onset Afib Acute Constipation Acute Insomnia Acute Insomnia Acute Polycythemia Acute Discharge Summary: Patient was admitted for PT/OT after undergoing mitral valve repair and Cryomaze by DR. Mckeon at [facility]. She did well with therapy but slept very poorly. She eventually requested discharge due to her poor sleep. Therapy and social organization professor helped set up Home Health and were comfortable with discharge. Her routine ambien didn't help. Lorazepam added was ho help. Temazepam did not help. Her INR remained low so coumadin was increased. INR was then supratherapuetic. It is on hold at discharge - she will resume her home dose in several days. INR will be drawn in several days by home health and faxed to [facility]. Hospital Course: Discharge Dx: WEakness. AFIB. s/p MV repair. HTN. polycythemia vera with leukocytosis, anemia, thrombocytosis. Disposition: Home Health.
[2018-04-22 15:41] VITALS: BP 127/62
== END 2018-04-22 15:37 | disposition home health service (06) | DRG 951 ==
LOC: SOUTH 16:18
PROVIDERS: ADMIT Family Medicine; ATTEND Family Medicine
DX: Z95.1 Presence of aortocoronary bypass graft (principal); I48.91 Unspecified atrial fibrillation; E03.9 Hypothyroidism, unspecified; I10 Essential (primary) hypertension; I25.10 Atherosclerotic heart disease of native coronary artery without angina pectoris; E78.5 Hyperlipidemia, unspecified
CPT/HCPCS: 36415; 80048; 80053; 85025; 85027; 85610

== ENCOUNTER 2018-06-30 15:24 | Outpatient (CLI) | payer MEDICARE, OTHER ==
[2018-06-30 16:34] LABS: MEAN CORPUSCULAR HEMOGLOBIN 26.5 pg (28.0-34.0); MEAN CORPUSCULAR VOLUME 92.7 fl (80.0-100.0)
[2018-06-30 17:16] LABS: eGFR (Non-African) 42
--- NOTE | 2018-06-30 18:46 | Diagnostic Imaging Report ---
MINNA CONLEY [facility] [address] [facility] [address] [address] Report Submission Date: Jun 30, 2018 4:52:30 PM CDT Patient Study Name: GALLITO POOLE Date: Jun 30, 2018 4:17:34 PM CDT Modality Type: DX Gender: F Description: PELVIS : 40 Institution: [facility] Physician: MINNA CONLEY AP pelvis History: Low back after fall AP view of the pelvis demonstrates no evidence for acute fracture or dislocation. No significant degenerative findings are noted. SI joints are patent. Impression: No osseous abnormality. Electronically signed on Jun 30, 2018 4:52:30 PM CDT by: Gia LAYTON
--- NOTE | 2018-06-30 18:47 | Diagnostic Imaging Report ---
MINNA CONLEY [facility] [address] [facility] [address] [address] Report Submission Date: Jun 30, 2018 4:49:21 PM CDT Patient Study Name: GALLITO POOLE Date: Jun 30, 2018 4:15:53 PM CDT Modality Type: DX Gender: F Description: SPINE : 40 Institution: [facility] Physician: MINNA CONLEY Lumbar spine History: Low back pain after a fall AP and lateral projections of the lumbar spine were obtained which demonstrate mild superior endplate compression deformity at L1, potentially acute. There is an estimated 10% loss of vertebral body height. There is moderate disc space narrowing at all levels except L1/2. There is extensive, multilevel facet arthropathy without appreciable spondylolisthesis. Aortoiliac atherosclerosis is present. Impression: Mild superior endplate compression deformity at L1 with an estimated 10% loss of vertebral body height, possibly acute. Extensive multilevel facet arthropathy and multilevel disc space narrowing. Electronically signed on Jun 30, 2018 4:49:21 PM CDT by: Gia LAYTON
== END 2018-06-30 15:26 ==
LOC: LAB 15:24
PROVIDERS: ATTEND Family Medicine
DX: R20.0 Anesthesia of skin (principal); Z79.01 Long term (current) use of anticoagulants; I48.91 Unspecified atrial fibrillation; M54.5 Low back pain
CPT/HCPCS: 36415; 72100; 72170; 80053; 82607; 84443; 85027; 85610

== ENCOUNTER 2018-07-30 14:09 | Outpatient (CLI) | payer MEDICARE, OTHER | END 2018-07-30 14:10 | LOC: LAB 14:09 | PROVIDERS: ATTEND Nurse Practitioner | DX: I10 Essential (primary) hypertension (principal); I48.2 Chronic atrial fibrillation; I34.0 Nonrheumatic mitral (valve) insufficiency; R06.02 Shortness of breath | CPT/HCPCS: 36415; 85610 ==

== ENCOUNTER 2018-08-16 10:07 | Outpatient (CLI) | payer MEDICARE, OTHER ==
--- NOTE | 2018-08-16 14:16 | Diagnostic Imaging Report ---
MINNA CONLEY [facility] [address] [facility] [address] Report Submission Date: Aug 16, 2018 11:26:13 AM CDT Patient Study Name: GALLITO POOLE Date: Aug 16, 2018 10:11:40 AM CDT Modality Type: DX Gender: F Description: SPINE : 40 Institution: [facility] Physician: MINNA CONLEY Cervical spine History: Numbness in the arms and shoulders AP, lateral and odontoid projections of the cervical spine demonstrate surgical clips along the lower right neck. The dens is intact. The lateral masses of C1 and C2 are aligned. There is mild disc space narrowing at C4/5, C5/6 and C6/7. Posterior spondylosis is present at all of these levels as well. Vertebral body height is maintained. There is no prevertebral soft tissue swelling. Impression: Findings consistent with mild degenerative disc disease and posterior spondylosis at C4/5, C5/6 and C6/7. Surgical clips are present at the low right neck. Electronically signed on Aug 16, 2018 11:26:13 AM CDT by: Gia LAYTON
== END 2018-08-16 13:19 ==
LOC: RAD 10:07
PROVIDERS: ATTEND Family Medicine
DX: M54.2 Cervicalgia (principal)
CPT/HCPCS: 72040

== ENCOUNTER 2018-12-01 14:23 | Outpatient (CLI) | payer MEDICARE, OTHER ==
[2018-12-01 15:17] LABS: BASOPHILS % 0.7 (0.0-1.5); EOSINOPHILS % 3.3 % (0.0-6.8); MONOCYTES % 4.9 % (0.0-11.0); NEUTROPHILS # 7.2 # k/uL (1.4-7.7)
[2018-12-01 15:44] LABS: eGFR (Non-African) 36
--- NOTE | 2018-12-01 15:44 | Diagnostic Imaging Report ---
<p>Your browser does not support iframes.</p> MINNA CONLEY [facility] [address] [facility].[address] [address] Report Submission Date: Dec 01, 2018 3:23:08 PM SENIOR CONTROLLER Patient Study Name: GALLITO POOLE Date: Dec 01, 2018 2:52:46 PM SENIOR CONTROLLER Modality Type: DX Gender: F Description: CHEST 2VIEW : 40 Institution: [facility] Physician: MINNA CONLEY Examination: Portable chest History: Evaluate lungs SOA AND WEAKNESS Comparison exam: None provided. Findings: Single view of the chest demonstrates a prominent cardiac and mediastinal silhouette. Sternotomy wires. Cardiac valve replacement. Tortuous aorta with vascular calcifications. Chronic interstitial changes. Blunting of the left lung base. Articular degenerative changes. Impression: Chronic interstitial changes. Left base effusion. Cardiomegaly. Electronically signed on Dec 01, 2018 3:23:08 PM SENIOR CONTROLLER by: Deshawn LAYTON
== END 2018-12-01 14:24 ==
LOC: LAB 14:23
PROVIDERS: ATTEND Family Medicine
DX: R91.8 Other nonspecific abnormal finding of lung field (principal); I51.7 Cardiomegaly; R60.0 Localized edema; D45 Polycythemia vera; R06.02 Shortness of breath
CPT/HCPCS: 36415; 71046; 80053; 85025